=== PATIENT | female | born 1985 | race Caucasian/White ===

== ENCOUNTER 2016-09-19 01:31 | Emergency (ER) | payer MEDICAID, OTHER ==
[~2016-09-19] VITALS: Ht 165.1 cm; Wt 84.5 kg
[~2016-09-19 01:31] MED LIST: PREN1TAB49
[2016-09-19 01:35] VITALS: Ht 165.1 cm; Wt 84.5 kg
--- NOTE | 2016-09-19 02:08 | ERD ---
ER Documentation Chief Complaint Date/Time DATE: 09/19/16 TIME: 02:06 Chief Complaint COUGH X 3 WEEKS HPI 30-year-old female presents here in emergency department for complaints of cough for 3 weeks. Patient has been having dry cough, does not cough up any phlegm or blood. Patient does not have any shortness of breath or wheezing. Patient does not have any runny nose nasal congestion or sneezing. Patient does not have any fever or chills. Patient's daughter is also sick with the same symptoms. Patient did not take any medications to help with symptoms. Patient does not have any chest pain or palpitations. Patient does not have any irregular heartbeat ROS All systems reviewed and are negative except as per history of present illness. Medications Home Meds Reported Medications Vits W-Ca,Fe,Fa(<1MG) () 1 Tab Tablet 03/13/11 Allergies Allergies: Coded Allergies: No Known Drug Allergies (Verified Allergy, Mild, 09/19/16) PMhx/Soc Medical and Surgical Hx: pt denies Medical Hx, pt denies Surgical Hx History of Surgery: No Anesthesia Reaction: No Hx Neurological Disorder: No Hx Respiratory Disorders: No Hx Cardiac Disorders: No Hx Psychiatric Problems: No Hx Alcohol Use: No Hx Substance Use: No Hx Tobacco Use: No Smoking Status: Never smoker FmHx Family History: diabetes, other (HTN) Physical Exam Vitals Vital Signs Date Time Temp Pulse Resp B/P Pulse Ox O2 Delivery O2 Flow Rate FiO2 09/19/16 01:35 97.0 95 20 145/66 99 Physical Exam GENERAL: The patient is well developed and appropriate for usual state of health, in no apparent distress. CHEST: Clear to auscultation bilaterally. There are no rales, wheezes or rhonchi. HEART: Regular rate and rhythm. No murmurs, clicks, rubs or gallops. No S3 or S4. ABDOMEN: Soft, nontender and nondistended. Good bowel sounds. No rebound or guarding. No gross peritonitis. No gross organomegaly or masses. No Elkins sign or McBurney point tenderness. BACK: No midline or flank tenderness. EXTREMITIES: Equal pulses bilaterally. There is no peripheral clubbing, cyanosis or edema. No focal swelling or erythema. Full range of motion. Grossly neurovascularly intact. NEURO: Alert and oriented. Cranial nerves 2-12 intact. Motor strength in all 4 extremities with 5/5 strength. Sensation grossly intact. Normal speech and gait. SKIN: There is no apparent rash or petechia. The skin is warm and dry. HEMATOLOGIC AND LYMPHATIC: There is no evidence of excessive bruising or lymphedema. No gross cervical, axillary, or inguinal lymphadenopathy. Results 24 hrs PROCEDURE: XR Chest. CLINICAL INDICATION: Cough. TECHNIQUE: Single frontal chest x-ray. COMPARISON: None. FINDINGS: The cardiomediastinal silhouette is unremarkable. There is mild bibasilar atelectasis.. There is no focal lobar infiltrate.. There is no pleural effusion. There is no pneumothorax. The osseous structures are unremarkable. IMPRESSION: Mild bibasilar atelectasis. No definite focal pneumonia. RPTAT: [facility] .Zane Bui MD, MD Date Time Electronically viewed and signed by .Zane Bui MD, on 09/19/2016 02:44 Procedures/MDM Medical Decision Making: Patient symptoms are most likely consistent with chronic cough, possible viral, possible allergic rhinitis related. There is low suspicion for Pneumonia at this time since patients lungs sounds are clear , patient O2 saturation is normal and patient doesnt show any respiratory distress. Patients chest xray doesnt show infiltrates or any other cardiopulmonary emergencies at this time. There is low suspicion for other cardiopulmonary emergencies at this time such as CHF, Pulmonary Embolism, Pneumothorax, Aortic Aneurysm or any other cardiopulmonary emergencies at this time. There is low suspicion for sepsis. Patient appears well and is hemodynamically stable. Patient does not have any fever. Disposition: Home. Condition: Stable Prescriptions: Guaifenesin with codeine, Zyrtec, ibuprofen, albuterol, Flonase Instructions: Patient is advised to take medications as prescribed. Patient is advised to rest. Patient advised to increase fluid intake, do humidifier at home and if possible, do salt water gargles. Patient is advised that if symptoms are worse, shortness of breath, uncontrolled fever, stridor, vomiting, worst signs and symptoms to return to emergency department immediately. Otherwise, patient is advised to follow up with primary doctor in 5-7 days. Departure Diagnosis: Primary Impression: Chronic cough Condition: Stable Patient Instructions: Cough, Chronic, Uncertain Cause, (Adult) Additional Instructions: Patient is advised to take medications as prescribed. Patient is advised to rest. Patient advised to increase fluid intake, do humidifier at home and if possible, do salt water gargles. Patient is advised that if symptoms are worse, shortness of breath, uncontrolled fever, stridor, vomiting, worst signs and symptoms to return to emergency department immediately. Otherwise, patient is advised to follow up with primary doctor in 5-7 days. PUJA WAKEFIELD NP Sep 19, 2016 02:07
--- NOTE | 2016-09-19 02:44 | RADRPT ---
PROCEDURE: XR Chest. CLINICAL INDICATION: Cough. TECHNIQUE: Single frontal chest x-ray. COMPARISON: None. FINDINGS: The cardiomediastinal silhouette is unremarkable. There is mild bibasilar atelectasis.. There is no focal lobar infiltrate.. There is no pleural effusion. There is no pneumothorax. The osseous str uctures are unremarkable. IMPRESSION: Mild bibasilar atelectasis. No definite focal pneumonia. RPTAT: [facility] .Zane Bui MD, Date Time Electronically viewed and signed by .Zane Bui MD, on 09/19/2016 02:44 .K/
[2016-09-19] MEDS ORDERED: GUAI473L22 PO (02:59)
[2016-09-19] MEDS ORDERED: FLUT9.9S NASAL (02:59)
[2016-09-19] MEDS ORDERED: IBUP400T22 PO (02:59)
[2016-09-19] MEDS ORDERED: CETI10CA PO (02:59)
[2016-09-19] MEDS ORDERED: ALBU8.5H3 INH (02:59)
[2016-09-19 03:52] VITALS: PULSE 88; RESP 20; TEMP 98.6
== END 2016-09-19 03:50 | disposition home or self-care (01) ==
LOC: FTE 01:31
DX: R05 Cough (principal)
CPT/HCPCS: 71010; Z7502